=== PATIENT | male | born 1970 | race Caucasian/White ===

== ENCOUNTER 2017-04-27 05:41 | Day surgery (SDC) | payer OTHER ==
[~2017-04-27] VITALS: Ht 190.5 cm; Wt 133.8 kg
[~2017-04-27 05:41] MED LIST: FLOVENT DISKUS50 MCG INH; MELOXICAM15 MG PO; NEURONTIN300 MG PO; NORCO 7.5-3251 EACH PO; OMEPRAZOLE20 MG PO; ONDANSETRON ODT8 MG PO; TAMSULOSIN HCL0.4 MG PO; TRIAMCINOLONE A15 G1 TOP; VENTOLIN HFA18 GM INH
[2017-04-27] MEDS ORDERED: ULTRAM50 MG PO (05:53)
--- NOTE | 2017-04-27 07:56 | NUR ---
04/27/17 0756 Lay Kowalski 0750-PATIENT ARRIVED TO PACU ON 6L MASK O2 SAT 100% SB. RIGHT HAND DRESSING CDI. GOOD CAP REFILL AND WARMTH. PATIENT NONAROUSABLE 0756-PATIENT AROUSING TO VERBAL STIMULI DENIES PAIN OR NAUSEA. ABLE TO WIGGLE FINGERS REPORTS NUMBNESS. ELEVATED ON PILLOW AND ICE. GUARDS AT BEDSIDE.
--- NOTE | 2017-05-02 07:37 | OR ---
[facility] [address], [place] [address] Signed DATE OF PROCEDURE: 04/27/17 PREOPERATIVE DIAGNOSIS: Carpal tunnel syndrome, right. POSTOPERATIVE DIAGNOSIS: Carpal tunnel syndrome, right. PROCEDURE: Carpal tunnel release, right. SURGEON: Kel Mascorro MD. ANESTHESIA: [place] block with sedation. There were no specimens or complications TOURNIQUET TIME: About 25 minutes. DESCRIPTION OF PROCEDURE The patient was taken to the operating room. After anesthesia was induced and the patient sedated, the right upper extremity was placed in the left hand. We then made a longitudinal incision in line with the anterior mid axial line of the 4th ray, beginning at the distal wrist flexion crease and extending distally for about 2 cm. Skin was divided sharply. Subcutaneous tissue was swept aside with a small [place] elevator. The transverse volar carpal ligament was identified. We used tip of 15 blade to release the transverse volar carpal ligament. We then visualized the median nerve and while protecting it, released the rest of the transverse volar carpal ligament using a pair of curved tenotomy scissors. We then placed a retractor into the proximal edge of the incision and released the distal 3 cm of the antebrachial fascia. The wound was gently irrigated and closed in a standard fashion. Sterile dressing was applied. The patient was awakened, taken to the recovery room where he arrived in stable condition. Counts were correct and antibiotic protocols were followed. MD ALFREDITO Velasco/Annie /[id number] Electronically Signed By: KEL MASCORRO MD 05/02/17 0737 PATIENT NAME: JOSE MIGUEL PÉREZ OPERATIVE REPORT DATE OF : 74 PHYSICIAN: KEL MASCORRO MD REPORT #: [id number] REPORT IS CONFIDENTIAL AND NOT TO BE RELEASED WITHOUT AUTHORIZATION [address] [address] Signed cc: Edwardo Alejandro MD Electronically Signed By: KEL MASCORRO MD 05/02/17 0737 PATIENT NAME: JOSE MIGUEL PÉREZ OPERATIVE REPORT DATE OF : 74 PHYSICIAN: KEL MASCORRO MD REPORT #: [id number] REPORT IS CONFIDENTIAL AND NOT TO BE RELEASED WITHOUT AUTHORIZATION
== END 2017-04-27 08:30 | disposition home or self-care (01) ==
LOC: DS 05:41
PROVIDERS: Orthopaedic Surgery
PROC: 01N50ZZ Release Median Nerve, Open Approach (ICD-10-PCS; principal; 2017-04-27 06:45)
DX: G56.01 Carpal tunnel syndrome, right upper limb (principal)
CPT/HCPCS: 01810; J0690; J2250; J2704; J7120